=== PATIENT | female | born 1980 | race Caucasian/White ===

== ENCOUNTER 2016-11-21 13:46 | Emergency (ER) | payer OTHER ==
[~2016-11-21 13:46] MED LIST: IBUPROFEN800 MG PO; PRENATAL PO
[2016-11-21] MEDS ORDERED: BACTRIM DS TAB1 EAC2 PO (14:00)
[2016-11-21] MEDS ORDERED: KEFLEX500 M4 PO (14:01)
[2016-11-21 14:28] LABS: EOSINOPHIL ABSOLUTE COUNT 0.2 tho/cmm (0.0-0.7); HCT-HEMATOCRIT 34.9 % (34.0-49.0); HGB-HEMOGLOBIN 11.1 gm/dl (12.0-15.5); LYMPH % 7.6 % (20-45); LYMPH ABSOLUTE COUNT 0.3 tho/cmm (0.8-4.5); MCH (MEAN CORPUSCULAR HGB) 24.6 pg (28.0-32.0); MCHC MEAN CORPUSCULAR HGB CONC 31.8 % (32.0-36.0); MCV (MEAN CELL VOLUME) 77.2 fl (82.0-96.0); MEAN PLATELET VOLUME 11.8 cmc (9.4-12.4); MONO % 3.9 % (0-12); MONOCYTE ABSOLUTE COUNT 0.1 tho/cmm (0.0-1.2); NEUTROPHIL ABSOLUTE COUNT 2.7 tho/cmm (1.6-8.0); NEUTROPHIL-AUTOMATED 2.7 tho/cmm (1.6-8.0); NEUTROPHILS % 82.5 % (40-80); PLATELET COUNT 156 tho/cmm (150-450); RED BLOOD COUNT 4.52 mil/cmm (4.00-5.20); RED CELL DISTRIBUTION WIDTH 14.5 % (12.4-16.4); WHITE BLOOD COUNT 3.3 tho/cmm (4.0-10.0)
[2016-11-21 14:41] LABS: PREGNANCY-SERUM NEGATIVE (NEGATIVE)
[2016-11-21 14:52] LABS: ALB/GLOB RATIO 1.1 (0.8-2.0); ALBUMIN 3.9 g/dl (3.5-5.0); ALKALINE PHOSPHATASE 55 U/L (33-138); ALT/SGPT 39 U/L (12-78); ANION GAP 15 mmol/L (0-20); AST/SGOT 24 U/L (10-40); BILIRUBIN,TOTAL 0.2 mg/dl (0-1.5); BLOOD UREA NITROGEN 15 mg/dl (6-24); CALCIUM 8.4 mg/dl (8.5-10.5); CARBON DIOXIDE-VENOUS 23 mmol/L (22-32); CHLORIDE 103 mmol/l (96-110); CREATININE 1.19 mg/dl (0.50-1.10); GLUCOSE 108 mg/dL (70-110); POTASSIUM 3.8 mmol/L (3.7-5.1); SODIUM 137 mmol/L (135-145); eGFR VALUE FOR BLACK 67 mL/Min
[2016-11-21 14:57] LABS: URINE BILIRUBIN NEGATIVE (NEG); URINE BLOOD NEGATIVE (NEG); URINE GLUCOSE (UA) NEGATIVE (NEG); URINE KETONE NEGATIVE (NEG); URINE LEUKOCYTE ESTERASE NEGATIVE (NEG); URINE NITRITE NEGATIVE (NEG); URINE PROTEIN NEGATIVE (NEG)
[2016-11-21 15:02] LABS: URINE APPEARANCE CLEAR; URINE COLOR PALE YELLOW
[2016-11-21 15:12] LABS: PROCALCITONIN 0.08 ng/ml (0.05-0.09)
== END 2016-11-21 16:23 ==
LOC: EDMED 13:46
PROVIDERS: Emergency Medicine
DX: L02.214 Cutaneous abscess of groin (principal); R50.9 Fever, unspecified
CPT/HCPCS: J2543; J7030

== ENCOUNTER 2016-11-23 10:17 | Inpatient (IN) | payer OTHER ==
[~2016-11-23 10:17] MED LIST changes: +BACTRIM DS TAB1 EAC2 PO; +KEFLEX500 M4 PO
[2016-11-23 11:42] LABS: EOS % 10.1 % (0-7); EOSINOPHIL ABSOLUTE COUNT 0.2 tho/cmm (0.0-0.7); HGB-HEMOGLOBIN 10.1 gm/dl (12.0-15.5); IMMATURE GRANULOCYTES ABSOLUTE 0.01 tho/cmm (0-0.03); IMMATURE GRANULOCYTES PERCENT 0.6 % (0-0.3); LYMPH % 23.6 % (20-45); LYMPH ABSOLUTE COUNT 0.4 tho/cmm (0.8-4.5); MCH (MEAN CORPUSCULAR HGB) 24.9 pg (28.0-32.0); MCHC MEAN CORPUSCULAR HGB CONC 32.6 % (32.0-36.0); MCV (MEAN CELL VOLUME) 76.5 fl (82.0-96.0); MEAN PLATELET VOLUME 11.9 cmc (9.4-12.4); MONO % 5.1 % (0-12); MONOCYTE ABSOLUTE COUNT 0.1 tho/cmm (0.0-1.2); NEUTROPHIL ABSOLUTE COUNT 1.1 tho/cmm (1.6-8.0); NEUTROPHIL-AUTOMATED 1.1 tho/cmm (1.6-8.0); NEUTROPHILS % 60.6 % (40-80); PLATELET COUNT 141 tho/cmm (150-450); RED BLOOD COUNT 4.05 mil/cmm (4.00-5.20); RED CELL DISTRIBUTION WIDTH 14.6 % (12.4-16.4)
[2016-11-23 11:48] LABS: WHITE BLOOD COUNT 1.8 tho/cmm (4.0-10.0)
[2016-11-23 11:54] LABS: URINE APPEARANCE CLEAR; URINE BILIRUBIN NEGATIVE (NEG); URINE BLOOD LARGE (NEG); URINE COLOR PALE YELLOW; URINE GLUCOSE (UA) NEGATIVE (NEG); URINE KETONE NEGATIVE (NEG); URINE LEUKOCYTE ESTERASE NEGATIVE (NEG); URINE NITRITE NEGATIVE (NEG); URINE PH 6.5 (5.0-8.0); URINE PROTEIN NEGATIVE (NEG); URINE SPECIFIC GRAVITY 1.005 (1.003-1.030)
[2016-11-23 11:56] LABS: ALBUMIN 3.4 g/dl (3.5-5.0); ALKALINE PHOSPHATASE 45 U/L (33-138); ALT/SGPT 42 U/L (12-78); ANION GAP 12 mmol/L (0-20); AST/SGOT 29 U/L (10-40); BILIRUBIN,TOTAL 0.2 mg/dl (0-1.5); BLOOD UREA NITROGEN 8 mg/dl (6-24); CALCIUM 8.1 mg/dl (8.5-10.5); CARBON DIOXIDE-VENOUS 24 mmol/L (22-32); CHLORIDE 108 mmol/l (96-110); CREATININE 0.98 mg/dl (0.50-1.10); GLUCOSE 96 mg/dL (70-110); POTASSIUM 3.9 mmol/L (3.7-5.1); SODIUM 140 mmol/L (135-145); eGFR VALUE FOR BLACK 85 mL/Min
[2016-11-23 12:01] LABS: URINE RBC 0-2 /[HPF] (0-5); URINE WBC 0 /[HPF] (0-5)
[2016-11-23] MEDS ORDERED: SOLODYN PO (12:16)
[2016-11-23 12:26] LABS: PROCALCITONIN 0.12 ng/ml (0.05-0.09)
[2016-11-24 06:30] LABS: BASO % 0.4 % (0-2); EOS % 8.7 % (0-7); EOSINOPHIL ABSOLUTE COUNT 0.2 tho/cmm (0.0-0.7); HCT-HEMATOCRIT 28.1 % (34.0-49.0); HGB-HEMOGLOBIN 9.1 gm/dl (12.0-15.5); IMMATURE GRANULOCYTES ABSOLUTE 0.05 tho/cmm (0-0.03); IMMATURE GRANULOCYTES PERCENT 2.2 % (0-0.3); LYMPH % 44.8 % (20-45); MCH (MEAN CORPUSCULAR HGB) 24.9 pg (28.0-32.0); MCHC MEAN CORPUSCULAR HGB CONC 32.4 % (32.0-36.0); MCV (MEAN CELL VOLUME) 76.8 fl (82.0-96.0); MEAN PLATELET VOLUME 11.4 cmc (9.4-12.4); MONO % 8.3 % (0-12); MONOCYTE ABSOLUTE COUNT 0.2 tho/cmm (0.0-1.2); NEUTROPHIL ABSOLUTE COUNT 0.8 tho/cmm (1.6-8.0); NEUTROPHIL-AUTOMATED 0.8 tho/cmm (1.6-8.0); NEUTROPHILS % 35.6 % (40-80); PLATELET COUNT 114 tho/cmm (150-450); RED BLOOD COUNT 3.66 mil/cmm (4.00-5.20); RED CELL DISTRIBUTION WIDTH 14.6 % (12.4-16.4); WHITE BLOOD COUNT 2.3 tho/cmm (4.0-10.0)
[2016-11-25 05:21] LABS: ALBUMIN 2.9 g/dl (3.5-5.0); ALKALINE PHOSPHATASE 45 U/L (33-138); ALT/SGPT 50 U/L (12-78); ANION GAP 11 mmol/L (0-20); AST/SGOT 39 U/L (10-40); BILIRUBIN,TOTAL 0.2 mg/dl (0-1.5); BLOOD UREA NITROGEN 8 mg/dl (6-24); C-REACTIVE PROTEIN 1.3 mg/dl (0-0.9); CARBON DIOXIDE-VENOUS 26 mmol/L (22-32); CHLORIDE 111 mmol/l (96-110); CREATININE 0.96 mg/dl (0.50-1.10); GLUCOSE 99 mg/dL (70-110); SODIUM 144 mmol/L (135-145); eGFR VALUE FOR BLACK 87 mL/Min
[2016-11-25 05:52] LABS: BASO % 0.4 % (0-2); EOS % 8.5 % (0-7); EOSINOPHIL ABSOLUTE COUNT 0.2 tho/cmm (0.0-0.7); HCT-HEMATOCRIT 26.4 % (34.0-49.0); HGB-HEMOGLOBIN 8.5 gm/dl (12.0-15.5); LYMPH % 54.2 % (20-45); LYMPH ABSOLUTE COUNT 1.5 tho/cmm (0.8-4.5); MCH (MEAN CORPUSCULAR HGB) 24.7 pg (28.0-32.0); MCHC MEAN CORPUSCULAR HGB CONC 32.2 % (32.0-36.0); MCV (MEAN CELL VOLUME) 76.7 fl (82.0-96.0); MEAN PLATELET VOLUME 11.8 cmc (9.4-12.4); MONO % 8.5 % (0-12); MONOCYTE ABSOLUTE COUNT 0.2 tho/cmm (0.0-1.2); NEUTROPHIL ABSOLUTE COUNT 0.8 tho/cmm (1.6-8.0); NEUTROPHIL-AUTOMATED 0.8 tho/cmm (1.6-8.0); NEUTROPHILS % 28.4 % (40-80); PLATELET COUNT 134 tho/cmm (150-450); RED BLOOD COUNT 3.44 mil/cmm (4.00-5.20); RED CELL DISTRIBUTION WIDTH 14.8 % (12.4-16.4); WHITE BLOOD COUNT 2.7 tho/cmm (4.0-10.0)
[2016-11-25 06:12] LABS: PROCALCITONIN 0.06 ng/ml (0.05-0.09)
[2016-11-25] MEDS ORDERED: BACITRACIN28.4 G2 TP (09:55)
== END 2016-11-25 11:27 | DRG 809 ==
LOC: EDMED 10:17 → EMR2 14:56 → 5WE 15:57
PROVIDERS: Emergency Medicine; Internal Medicine; ADMIT Hospitalist
PROC: 02HV33Z Insertion of Infusion Device into Superior Vena Cava, Percutaneous Approach (ICD-10-PCS; principal; 2016-11-23)
DX: D61.811 Other drug-induced pancytopenia (principal); L02.214 Cutaneous abscess of groin; L27.0 Generalized skin eruption due to drugs and medicaments taken internally; R50.2 Drug induced fever; L70.9 Acne, unspecified; T37.0X5A Adverse effect of sulfonamides, initial encounter; Z79.2 Long term (current) use of antibiotics
CPT/HCPCS: C1751; J2543; J3370; J7030; J7050